=== PATIENT | female | born 1960 | race Caucasian/White ===

== ENCOUNTER 2021-03-06 12:02 | Emergency (ER) | payer OTHER, MEDICARE | END 2021-03-06 12:55 | disposition home or self-care (01) | LOC: BURERS 12:02 | DX: S46.912A Strain of unspecified muscle, fascia and tendon at shoulder and upper arm level, left arm, initial encounter (principal); K21.9 Gastro-esophageal reflux disease without esophagitis; E03.9 Hypothyroidism, unspecified; G43.909 Migraine, unspecified, not intractable, without status migrainosus; Z79.899 Other long term (current) drug therapy; V53.5XXA Driver of pick-up truck or van injured in collision with car, pick-up truck or van in traffic accident, initial encounter | CPT/HCPCS: 99283 ==

== ENCOUNTER 2025-03-27 06:25 | Emergency (ER) | payer MEDICARE ==
[2025-03-27] MEDS ORDERED: Amoxicillin/Potassium Clav 875 MG TAB ONE (08:24)
== END 2025-03-27 08:27 | disposition home or self-care (01) ==
LOC: BURERS 06:25
DX: S61.451A Open bite of right hand, initial encounter (principal); W54.0XXA Bitten by dog, initial encounter
CPT/HCPCS: 99283